=== PATIENT | female | born 1970 | race African-American/Black ===

== ENCOUNTER 2017-01-30 05:59 | Observation (INO) | payer OTHER ==
[~2017-01-30] VITALS: Ht 170.2 cm; Wt 90.3 kg
[2017-01-30] VITALS (10 sets, daily range): BP systolic 87–128; BP diastolic 48–79
[~2017-01-30 05:59] MED LIST: MULT1TAB52 PO
[2017-01-30] MEDS ORDERED: ONDANSETRON PF 4 MG/2 ML VIAL. IV PRN ×2 (07:00→09:30)
[2017-01-30] MEDS ORDERED: PROCHLORPERAZINE 10 MG/2 ML VIAL. IV PRN ×2 (07:00→09:30)
[2017-01-30] MEDS ORDERED: LIDOCAINE 1% PF 2 ML VIAL. ID PRN (07:00)
[2017-01-30] MEDS ORDERED: IV RINGERS,LACTATED 1000ML 1,000 ML IV SCH (07:00)
[2017-01-30] MEDS ORDERED: fentaNYL PF VIAL 100 MCG/2 ML VIAL IV PRN (07:00)
[2017-01-30] MEDS ORDERED: HYDROmorphone 2 MG/ML VIAL IV PRN (07:00)
[2017-01-30] MEDS ORDERED: MORPHINE SULFATE 2 MG/ML DISP.SYRIN. IV PRN (07:00)
[2017-01-30 07:07] LABS: BASO % 1 % (0-3); EOS % 3 % (0-3); HEMATOCRIT 40.1 % (36.0-47.0); HEMOGLOBIN 13.3 g/dL (12.0-15.5); LYMPH % 35 % (24-48); MEAN CORPUSCULAR HEMOGLOBIN 30 pg (25-35); MEAN CORPUSCULAR HGB CONC 33 g/dL (31-37); MEAN CORPUSCULAR VOLUME 92 fL (79-100); MONO % 10 % (0-9); NEUT % 51 % (31-73); PLATELET COUNT 206 x10^3/uL (140-400); RED BLOOD COUNT 4.37 x10^6/uL (3.50-5.40); RED CELL DISTRIBUTION WIDTH 13.2 % (11.5-14.5); WHITE BLOOD COUNT 5.6 x10^3/uL (4.0-11.0)
[2017-01-30] MEDS ORDERED: PROPOFOL 20 ML IV ONE (07:33)
[2017-01-30] MEDS ORDERED: MIDAZOLAM HCL/PF 2 MG/2 ML VIAL. ONE (07:33)
[2017-01-30] MEDS ORDERED: ONDANSETRON PF 4 MG/2 ML VIAL. ONE (07:33)
[2017-01-30] MEDS ORDERED: ROCURONIUM 50 MG/5 ML VIAL. ONE (07:33)
[2017-01-30] MEDS ORDERED: fentaNYL PF VIAL 100 MCG/2 ML VIAL ONE (07:33)
[2017-01-30] MEDS ORDERED: DEXAMETHASONE SOD PHOS 20 MG/5 ML VIAL. ONE (07:33)
[2017-01-30] MEDS ORDERED: LIDOCAINE 2% PF Vial for OR 5 ML VIAL. ONE (07:33)
[2017-01-30] MEDS ORDERED: BUPIVACAINE-EPI 0.25%-1:200000 50 ML VIAL. ONE (07:46)
[2017-01-30 08:26] LABS: NEG OBC UR NEG; POS OBC UR POS
[2017-01-30] MEDS ORDERED: 0.9 % SODIUM CHLORIDE 50 ML VIAL. IJ ONE (08:38)
[2017-01-30] MEDS ORDERED: PHENYLEPHRINE 10 MG/ML VIAL. ONE (08:39)
[2017-01-30] MEDS ORDERED: NEOSTIGMINE 10 MG/10 ML VIAL. ONE (08:51)
[2017-01-30] MEDS ORDERED: GLYCOPYRROLATE 1 MG/5 ML VIAL. ONE (08:51)
[2017-01-30] MEDS ORDERED: KETOROLAC 30 MG/ML INJ FOR OR. INJ ONE (08:57)
[2017-01-30] MEDS ORDERED: SEVOFLURANE 61 TO 120 MINUTES. IH ONE (09:06)
--- NOTE | 2017-01-30 09:18 | PDOC ---
BRIEF OPERATIVE NOTE Date: Jan 30, 2017 Pre-Op Diagnosis 1. AUB 2. Fibroid Post-Op Diagnosis Same Procedure Performed [facility] Surgeon Dr. Villanueva Anesthesia Type: General Blood Loss 75 ml Specimens Obtained uterus, cervix, key. fallopian tubes Findings enlarged, fibroid uterus; nml fallopian tubes and ovaries key. Complications none Operative Note see dictations LIZZETTE VILLANUEVA Jr, MD Jan 30, 2017 09:18
[2017-01-30] MEDS ORDERED: diphenhydrAMINE 50 MG/ML VIAL IV PRN (09:30)
[2017-01-30] MEDS ORDERED: diphenhydrAMINE HCL 25 MG CAPSULE PO PRN (09:30)
[2017-01-30] MEDS ORDERED: KETOROLAC 30 MG/ML INJ. IV PRN (09:30)
[2017-01-30] MEDS ORDERED: 0.9 % SODIUM CHLORIDE 10 ML DISP.SYRIN. IV PRN (09:30)
[2017-01-30] MEDS ORDERED: DEXTROSE 50% 25 GM / 50ML DISP.SYRIN. IV PRN (09:30)
[2017-01-30] MEDS ORDERED: CALCIUM CARBONATE 500 MG TAB.CHEW PO PRN (09:30)
[2017-01-30] MEDS ORDERED: SIMETHICONE 80 MG TAB.CHEW PO PRN (09:30)
[2017-01-30] MEDS ORDERED: ZOLPIDEM 5 MG TABLET. PO PRN (09:30)
[2017-01-30] MEDS: fentaNYL PF VIAL 100 MCG/2 ML VIAL IV PRN ×2 (09:41→09:54)
--- NOTE | 2017-01-30 09:45 | OP ---
DATE OF SURGERY: PREOPERATIVE DIAGNOSES: 1. Abnormal uterine bleeding. 2. Fibroid uterus. POSTOPERATIVE DIAGNOSES: 1. Abnormal uterine bleeding. 2. Fibroid uterus. PROCEDURE: TVH. SURGEON: Lizzette Villanueva MD ANESTHESIA: GETA. ESTIMATED BLOOD LOSS: 75 mL. COMPLICATIONS: None. FINDINGS: Enlarged fibroid uterus, normal fallopian tubes and ovaries bilaterally. SUMMARY: A 46-year-old with long history of abnormal uterine bleeding and fibroid uterus, unresponsive to medical treatment as well as IUD placement. The patient required hysterectomy. She was counseled on risks, benefits and expectations of TVH and voiced a clear understanding to proceed. DESCRIPTION OF PROCEDURE: The patient was taken to surgery suite and placed in dorsal lithotomy position. The patient was prepped with Betadine solution and draped in a sterile fashion. After adequate anesthesia, weighted speculum and curved Germán were placed vaginally. The anterior and posterior lips of the cervix were grasped with Kwaku clamps. 1% lidocaine with epinephrine was injected circumferentially around the cervix. Bovie cautery was then utilized to circumscribe the cervix. The vaginal mucosa was dissected away from the lower uterine segment using blunt dissection with a moist Ray-[place]. The parametrial tissue was clamped bilaterally with curved Naina clamps, cut and suture ligated with 2-0 Vicryl suture. The posterior cul-de-sac was then entered sharply with curved Ospina scissors. The long weighted speculum was placed. The uterosacral ligaments and cardinal ligaments were clamped bilaterally, cut, and suture ligated. Additional pedicle was taken just adjacent to the uterus, it was clamped bilaterally, cut, and suture ligated. The uterus was then retroverted and using ____ method to remove some of the fibroids and decompressed the uterus. The uteroovarian pedicles were then clamped bilaterally, cut, and suture ligated. The remainder of the uterus and cervix were then removed. The right fallopian tube was isolated, clamped with curved Naina clamps, cut and suture ligated. Same process was taken place with the left fallopian tube, in which both fallopian tubes were removed. The pedicles were all hemostatic. A modified Haddad's culdoplasty was performed incorporating the uterosacral ligaments bilaterally. The remainder of the vaginal cuff was reapproximated using 2-0 Vicryl suture in a [id number] manner. Moist vaginal packing was placed. A Allred catheter was then placed which elicited a moderate amount of clear urine. The patient tolerated the procedure well and was taken to recovery room in stable condition. Sponge and needle count correct x 3. LIZZETTE VILLANUEVA MD DR: CORTNEY/herberth JOB#: [id number] / [id number]
[2017-01-30] MEDS: oxyCODONE/APAP 5/325 1 TAB TABLET PO PRN ×2 (13:52→21:22)
[2017-01-31 06:00] VITALS: BP 125/62
[2017-01-31] MEDS: GABAPENTIN 300 MG CAPSULE. PO SCH ×2 (06:00→14:00)
[2017-01-31] MEDS: oxyCODONE/APAP 5/325 1 TAB TABLET PO PRN (06:34)
[2017-01-31 07:01] LABS: BASO % 0 % (0-3); EOS % 0 % (0-3); HEMATOCRIT 36.2 % (36.0-47.0); HEMOGLOBIN 12.1 g/dL (12.0-15.5); LYMPH # 2.2 x10^3/uL (1.0-4.8); LYMPH % 14 % (24-48); MEAN CORPUSCULAR HEMOGLOBIN 30 pg (25-35); MEAN CORPUSCULAR HGB CONC 33 g/dL (31-37); MEAN CORPUSCULAR VOLUME 91 fL (79-100); MONO % 8 % (0-9); NEUT % 78 % (31-73); PLATELET COUNT 210 x10^3/uL (140-400); RED BLOOD COUNT 3.99 x10^6/uL (3.50-5.40); WHITE BLOOD COUNT 15.5 x10^3/uL (4.0-11.0)
--- NOTE | 2017-01-31 11:34 | PDOC ---
SURGICAL PROGRESS NOTE Subjective Pt. feeling well. Pain controlled. Pt. ambulating, voiding and tolerating regular diet. Vital Signs Vital Signs Date Time Temp Pulse Resp B/P (MAP) Pulse Ox O2 Delivery O2 Flow Rate FiO2 01/31/17 06:34 18 98 Room Air 01/31/17 06:00 98.8 78 125/62 (83) 10.0 98.8 I&O Intake and Output 01/31/17 06:59 Intake Total 2690 ml Output Total 2575 ml Balance 115 ml Intake Oral 1140 ml IV Total 1550 ml Output Urine Total 2500 ml Estimated Blood Loss 75 ml PATIENT HAS A TAYLOR: No General: Alert, Oriented X3, Cooperative HEENT: Atraumatic Lungs: Clear to auscultation Heart: Regular rate Abdomen: Normal bowel sounds, Soft, No tenderness Psych/Mental Status: Mental status NL Labs Laboratory Tests Test 01/30/17 06:30 01/31/17 06:10 White Blood Count 5.6 x10^3/uL (4.0-11.0) 15.5 x10^3/uL (4.0-11.0) Red Blood Count 4.37 x10^6/uL (3.50-5.40) 3.99 x10^6/uL (3.50-5.40) Hemoglobin 13.3 g/dL (12.0-15.5) 12.1 g/dL (12.0-15.5) Hematocrit 40.1 % (36.0-47.0) 36.2 % (36.0-47.0) Mean Corpuscular Volume 92 fL (79-100) 91 fL (79-100) Mean Corpuscular Hemoglobin 30 pg (25-35) 30 pg (25-35) Mean Corpuscular Hemoglobin Concent 33 g/dL (31-37) 33 g/dL (31-37) Red Cell Distribution Width 13.2 % (11.5-14.5) 13.0 % (11.5-14.5) Platelet Count 206 x10^3/uL (140-400) 210 x10^3/uL (140-400) Neutrophils (%) (Auto) 51 % (31-73) 78 % (31-73) Lymphocytes (%) (Auto) 35 % (24-48) 14 % (24-48) Monocytes (%) (Auto) 10 % (0-9) 8 % (0-9) Eosinophils (%) (Auto) 3 % (0-3) 0 % (0-3) Basophils (%) (Auto) 1 % (0-3) 0 % (0-3) Neutrophils # (Auto) 2.9 x10^3uL (1.8-7.7) 12.0 x10^3uL (1.8-7.7) Lymphocytes # (Auto) 2.0 x10^3/uL (1.0-4.8) 2.2 x10^3/uL (1.0-4.8) Monocytes # (Auto) 0.6 x10^3/uL (0.0-1.1) 1.3 x10^3/uL (0.0-1.1) Eosinophils # (Auto) 0.1 x10^3/uL (0.0-0.7) 0.0 x10^3/uL (0.0-0.7) Basophils # (Auto) 0.0 x10^3/uL (0.0-0.2) 0.0 x10^3/uL (0.0-0.2) Urine Test Negative (NEG) Laboratory Tests Test 01/31/17 06:10 White Blood Count 15.5 x10^3/uL (4.0-11.0) Red Blood Count 3.99 x10^6/uL (3.50-5.40) Hemoglobin 12.1 g/dL (12.0-15.5) Hematocrit 36.2 % (36.0-47.0) Mean Corpuscular Volume 91 fL (79-100) Mean Corpuscular Hemoglobin 30 pg (25-35) Mean Corpuscular Hemoglobin Concent 33 g/dL (31-37) Red Cell Distribution Width 13.0 % (11.5-14.5) Platelet Count 210 x10^3/uL (140-400) Neutrophils (%) (Auto) 78 % (31-73) Lymphocytes (%) (Auto) 14 % (24-48) Monocytes (%) (Auto) 8 % (0-9) Eosinophils (%) (Auto) 0 % (0-3) Basophils (%) (Auto) 0 % (0-3) Neutrophils # (Auto) 12.0 x10^3uL (1.8-7.7) Lymphocytes # (Auto) 2.2 x10^3/uL (1.0-4.8) Monocytes # (Auto) 1.3 x10^3/uL (0.0-1.1) Eosinophils # (Auto) 0.0 x10^3/uL (0.0-0.7) Basophils # (Auto) 0.0 x10^3/uL (0.0-0.2) Assessment/Plan A: POD#1 s/p TVH P: D/c home. Problems: LIZZETTE CORONA Jr, MD Jan 31, 2017 11:34
--- NOTE | 2017-01-31 11:35 | DISCH ---
DISCHARGE INSTRUCTIONS Condition on Discharge Condition on Discharge: Stable Activity After Discharge Activity Instructions for Disc: Activity as tolerated Lifting Instructions after Dis: No heavy lifting Driving Instructions after Dis: Do not drive today Diet after Discharge Diet after Discharge: Regular Contacting the DRJaison after DC Call your doctor for: Concerns you may have Follow-Up Follow up with: Dr. Villanueva in 3 weeks. LIZZETTE VILLANUEVA Jr, MD Jan 31, 2017 11:35
[2017-01-31] MEDS ORDERED: DOCU-109 PO (11:36)
[2017-01-31] MEDS ORDERED: OXYC-323 PO (11:36)
[2017-01-31] MEDS ORDERED: IBUP-1060 PO (11:36)
[2017-01-31 13:12] VITALS: BP 99/54
--- NOTE | 2017-02-03 09:40 | PATHOLOGY ---
PATHOLOGY REPORT * * * * * * * * FINAL DIAGNOSIS: Segments of uterine corpus, uterine cervix, and detached bilateral fallopian tubes, vaginal hysterectomy with bilateral salpingectomy: - Leiomyomas (4), uterine corpus, the largest measuring 2.5 cm. - Chronic inflammation of exocervix. - Mild chronic cervicitis with focal squamous metaplasia. - Nabothian cysts, cervix. - Attenuated endometrium with focal stromal deciduoid change and glandular/stromal breakdown consistent with progesterone effect. - Adenomyosis, uterine corpus, focal. - Status-post tubal ligation, with mild proximal hematohydrosalpinx. - Paratubal cyst, side indeterminate. COMMENT: There is no evidence of malignancy. (JPM:mgr; 01/31/2017) REPORT ELECTRONICALLY SIGNED BY: Anibal Hernández M.D. DATE/TIME: 02/03/2017 09:39 * * * * * * * * GROSS PATHOLOGY: Received in formalin labeled "Dejosé Green, uterus, cervix, bilateral tubes" is a morcellated hysterectomy specimen. The portions of uterus and cervix weigh 193 g. The uterus measures in aggregate 9.5 x 9.5 x 4.3 cm. The cervix is received intact, and measures 5.7 x 5.2 x 3.3 cm. The cervical os is ovoid and measures 2.0 x 1.3 cm. The cervical os is probe patent and the cervix is opened to reveal a 5.0 x 1.2 cm endocervical canal. The endometrial cavity dimensions cannot be determined due to the fragmented nature of the uterus. Scant endometrium is identified, with a 0.1 cm average thickness. The average myometrial thickness is 3.3 cm. The myometrium is sectioned to reveal 4 salcido-white leiomyomata ranging from 0.6-2.5 cm in greatest dimension. No hemorrhage or necrosis is identified. The fallopian tubes are received separately and unoriented. One fallopian tube measures 8.0 cm in length and 1.0 cm in diameter, and has a thin walled simple cyst at the fimbria measuring 1.3 x 1.0 x 0.8 cm. The fallopian tube has a central area where the tube is absent, possibly consistent with a prior sterilization procedure. This area measures 1.3 cm in length, and the proximal and distal portions of the fallopian tube are connected only by a thin fibrous strand. The fallopian tube is sectioned to reveal a dilated lumen containing hemorrhagic fluid. The second fallopian tube is received in two portions, with the portion without fimbria measuring 1.6 cm in length and 0.5 cm in diameter and the portion with fimbria measuring 2.5 cm in length and 0.6 cm in diameter. The fallopian tube is serially sectioned to reveal a pinpoint lumen. Ovaries are not grossly identified. Loan Manager sections of the specimen are submitted as follows: A1-A2 12:00 and 6:00 cervix A3-A4 insurance sales representative endomyometrium A5 insurance sales representative leiomyomata A6 insurance sales representative fallopian tube with cyst A7 insurance sales representative second fallopian tube ([facility]; 01/30/2017) INITIAL CPT CODE(S): A; 00915 Professional services performed by [facility] [place] [address] Technical services performed by [facility] at [address] [place] [address], [facility] [address], [place] [address]. SPECIMEN(S) RECEIVED: A.Uterus, cervix and bilateral tubes CLINICAL HISTORY: Fibroids, abnormal uterine bleeding PATIENT: BONG RIVERA /AGE: 507/04/1970 (Age: 46) PATIENT #: [id number] ALT CASE #: SPECIMEN COLLECTION DATE: 01/30/2017 SPECIMEN RECEIVED DATE: 01/30/2017 [facility] - [address] [place] [address] - PHONE: [phone] * * * END OF REPORT * * *
== END 2017-01-31 14:38 | disposition home or self-care (01) ==
LOC: INTOOBSV 05:59 → OPSVCIP 05:59 → 3 NORTH 10:10
PROVIDERS: ADMIT Obstetrics & Gynecology; ATTEND Obstetrics & Gynecology
DX: N93.9 Abnormal uterine and vaginal bleeding, unspecified (principal); D25.9 Leiomyoma of uterus, unspecified
CPT/HCPCS: 36415; 58260; 81025; 85025; 86850; 86900; 86901; 96374; G0378; G0379; J0690; J1100; J1885; J2250; J2704; J2710; J3010; J3490; J2405; J7120; J2001